=== PATIENT | male | born 1995 | race Caucasian/White ===

== ENCOUNTER 2020-03-25 03:44 | Emergency (ER) | payer SELFPAY ==
[~2020-03-25] VITALS: Ht 175.3 cm; Wt 84.8 kg
[2020-03-25 03:46] VITALS: BP 144/83
--- NOTE | 2020-03-25 03:46 | NUR ---
FABIENNE LAGUERRE. TAKEN TO CHAIR B
--- NOTE | 2020-03-25 04:16 | NUR ---
PATIENT BIB [facility]. PATIENT EXAMINED BY DR. BALL. PATIENT MEDICALLY CLEARED AND RELEASED IN CUSTODY IN STABLE CONDITION. ORIGINAL PRE-BOOK FORM GIVEN TO OFFICER [facility] #[id number].
== END 2020-03-25 04:16 ==
LOC: MED 03:44
DX: F10.129 Alcohol abuse with intoxication, unspecified (principal); Z02.89 Encounter for other administrative examinations; V89.2XXA Person injured in unspecified motor-vehicle accident, traffic, initial encounter; Y93.89 Activity, other specified; Y92.89 Other specified places as the place of occurrence of the external cause; Y99.8 Other external cause status
CPT/HCPCS: 99283